=== PATIENT | female | born 1970 | race African-American/Black ===

== ENCOUNTER 2024-07-03 10:29 | Day surgery (SDC) | payer BC ==
[2024-06-29 12:39] VITALS: BMI 30.4
[2024-07-03 10:57] VITALS: RESP 18
[2024-07-03 12:58] VITALS: BP 132/64; PULSE 70; TEMP 87
== END 2024-07-03 13:07 | disposition home or self-care (01) ==
LOC: FASU-ENDO 10:29
PROVIDERS: ATTEND Internal Medicine Gastroenterology
PROC: 0DBK8ZX Excision of Ascending Colon, Via Natural or Artificial Opening Endoscopic, Diagnostic (ICD-10-PCS; 2024-07-03)
PROC: 0DBL8ZX Excision of Transverse Colon, Via Natural or Artificial Opening Endoscopic, Diagnostic (ICD-10-PCS; principal; 2024-07-03 12:12)
DX: Z12.11 Encounter for screening for malignant neoplasm of colon (principal); D12.3 Benign neoplasm of transverse colon; K63.5 Polyp of colon; K57.30 Diverticulosis of large intestine without perforation or abscess without bleeding
CPT/HCPCS: 81025; 82962; 88305-TC